=== PATIENT | male | born 1985 | race Caucasian/White ===

== ENCOUNTER 2022-07-05 15:47 | Outpatient (CLI) | payer OTHER, SELFPAY | END 2022-07-05 15:48 | disposition home or self-care (01) | LOC: AMB 07-24 13:09 | PROVIDERS: PCP Surgery; Visit Provider Family Medicine | DX: S19.9XXA Unspecified injury of neck, initial encounter (principal); S39.92XA Unspecified injury of lower back, initial encounter; V43.53XA Car driver injured in collision with pick-up truck in traffic accident, initial encounter; Y92.410 Unspecified street and highway as the place of occurrence of the external cause | CPT/HCPCS: A0425; A0427 ==